=== PATIENT | female | born 2000 | race Caucasian/White ===

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

== ENCOUNTER 2018-06-01 08:47 | Emergency (ER) | payer SELFPAY ==
[2018-06-01 08:54] VITALS: BMI 32.3
[2018-06-01 08:57] VITALS: BP 108/76; PULSE 98; RESP 18; TEMP 98.4; O2SAT 99
--- NOTE | 2018-06-01 09:22 | C.PDOC ---
History Of Present Illness 17 yo female, presetns with cough body aches fever to 101, rhinorrhea and mild sore throat. started 2 days ago. sister "diagnosed with the flu". pt did not get flu shot. no other complaints in ner in nad, speaking full sentences smiling HPI: Influenza Time Seen by Provider: 06/01/18 09:15 Chief Complaint: Flu-like Symptoms Past Medical History Reviewed: Historical Data, Nursing Documentation, Vital Signs Vital Signs: Last Vital Signs Temp 98.4 F 06/01/18 08:53 Pulse 98 H 06/01/18 08:53 Resp 18 06/01/18 08:53 BP 108/76 06/01/18 08:53 Pulse Ox 99 06/01/18 08:53 Surgical History: Tonsillectomy Family History: States: Unknown Family Hx - Social History Hx Tobacco Use: No Hx Alcohol Use: No Hx Substance Use: No - Immunization History Hx Tetanus Toxoid Vaccination: Yes (2015) Hx Influenza Vaccination: No Hx Pneumococcal Vaccination: No Review Of Systems Constitutional: Positive for: Fever (101) ENT: Positive for: Throat Pain Respiratory: Positive for: Cough Physical Exam - Physical Exam Appears: Well, No Acute Distress, Other (in nad, speaking full sentences) Skin: Normal Color, Warm, Dry Eye(s): bilateral: Normal Inspection, PERRL, EOMI Nose: Normal Throat: Erythema, No Exudate Neck: Normal Cardiovascular: Rhythm Regular Respiratory: Normal Breath Sounds Gastrointestinal/Abdominal: Normal Exam, Soft, No Tenderness, No Guarding, No Rebound Back: Normal Inspection Extremity: Normal ROM Medical Decision Making Medical Decision Making: lungs cta in nad, sister with flu .will start tamiflu advise outpt fu and return precautions - ECG O2 Sat by Pulse Oximetry: 99 Disposition - Disposition Referrals: [facility] [Outside] [facility] [Outside] Disposition: HOME/ ROUTINE Disposition Time: 09:21 Condition: STABLE Additional Instructions: please see clinic or your doctor return to any er with worsening. Prescriptions: Oseltamivir Phosphate [Tamiflu] 75 mg PO BID #10 capsule Instructions: Viral Syndrome (DC) - Clinical Impression Clinical Impression: Influenza-like illness
== END 2018-06-01 09:36 | disposition home or self-care (01) ==
LOC: C.ER 08:47
DX: J11.1 Influenza due to unidentified influenza virus with other respiratory manifestations (principal)